=== PATIENT | male | born 2000 | race Hispanic/Latino ===

== ENCOUNTER 2019-10-14 16:19 | Emergency (ER) | payer SELFPAY ==
[~2019-10-14] VITALS: Ht 167.6 cm; Wt 97.5 kg
== END 2019-10-14 17:36 | disposition home or self-care (01) ==
LOC: FSED 16:19
DX: R05 Cough (principal); J04.0 Acute laryngitis; B34.9 Viral infection, unspecified; J06.9 Acute upper respiratory infection, unspecified
CPT/HCPCS: 83518; 87400; 99282